=== PATIENT | female | born 1945 | race Caucasian/White ===

== ENCOUNTER 2022-09-08 23:12 | Emergency (ER) | payer MEDICARE, SELFPAY ==
--- NOTE | ~2022-09-08 | CT_ITS ---
EXAMINATION: CT brain wo con DATE: 09/08/2022 23:57 INDICATION: Neuro deficit. TRANSIENT ALTERATION OF AWARENESS. . TECHNIQUE: Computed tomography (CT) of the head was performed without intravenous contrast. The mA wa s adjusted according to patient size. Iterative reconstruction technique was employed. The dose-lengt h product was 605.33 mGy-cm. COMPARISON: None FINDINGS: No acute intracranial hemorrhage or extra-axial fluid collection. No hydrocephalus, mass, or herniation. No acute ischemic infarct. Unremarkable dural venous sinus attenuation. No acute osseous abnormality. Small bilateral mastoid effusions, in poorly pneumatized mastoid air cells. The remaining aerated spa pallavi are clear. Moderate atrophy and chronic white matter change. Atherosclerotic intracranial calcification. Bilater al lens replacements. IMPRESSION: No acute intracranial process. Reviewed, dictated and finalized at location K. POLISHER
--- NOTE | 2022-09-08 23:15 | ED.NEUROSD ---
HPI - Neuro Symptoms/Deficit General Stated Complaint: stoke signs Time Seen by Provider: 09/08/22 23:15 Source: patient, family and RN notes reviewed Discharge Plan Discharge Follow-up/Referrals: UNKNOWN,DOCTOR [Primary Care Provider] -
--- NOTE | 2022-09-08 23:16 | ECG_ITS ---
Measurements Intervals [place] Rate: 56 P: 37 MN: 168 QRS: 25 QRSD: 96 T: 48 QT: 458 QTc: 443 Interpretive Statements SINUS BRADYCARDIA WITH OCCASIONAL SUPRAVENTRICULAR PREMATURE COMPLEXES LONG QT INTERVAL ] NO PREVIOUS ECG AVAILABLE FOR COMPARISON Electronically Signed On 09-09-2022 6:28:29 CRM COORDINATOR by Huang Gramajo M.D.
[2022-09-08 23:18] LABS: Glucose Point of Care 48 mg/dl (65-105)
[2022-09-08 23:21] VITALS: BP 109/55; PULSE 56; TEMP 36.2; O2SAT 99
[2022-09-08 23:22] LABS: Glucose Point of Care 38 mg/dl (65-105)
[2022-09-08] MEDS: DEXTROSE 50% 25 GM/50 ML SYRINGE IV PUSH (23:23)
--- NOTE | 2022-09-08 23:31 | ED.AMS ---
HPI - Altered Mental Status General Chief Complaint: Altered Mental Status Stated Complaint: stoke signs Time Seen by Provider: 09/08/22 23:15 Source: patient, family ( grandson) and RN notes reviewed Mode of arrival: wheelchair Limitations: no limitations and clinical condition History of Present Illness HPI narrative: orlando states that his grandmother was put in bed at 7:00 p.m.. Because of her Alzheimer's and sometime she gets up out of bed on her own they have a motion sensitive camera in the room. They noted that she was sitting up on the edge of the bed not moving. They went down to see what was going on put her back in bed and she does not seem to be acting quite right. She does have a history of Alzheimer's dementia but she was not following commands as well as they thought. She was able to stand up seemed to have some difficulty with coordination. She is moving all extremities. Orlando had something on the floor and asked her to pick it up and she had difficulty bending over and picking it and never did pick it up. At that point they were concerned she might be having a stroke and they brought her here. complaint: altered mental status and weakness Onset (ago): hour(s) (4) Time: 19:00 Timing confirmed by: family member Severity: moderate Consistency of symptoms: constant Associated symptoms: weakness and difficulty walking ( coordination) Related Data Home Medications Medication Instructions Recorded Confirmed atorvastatin 10 mg tablet mg 09/08/22 losartan 25 mg tablet 25 mg PO 09/08/22 memantine ER 28 mg-donepezil 10 mg PO DAILY 09/08/22 capsule sprinkle,ext.release 24 hr (Namzaric) sertraline 50 mg tablet mg 09/08/22 Allergies Allergy/AdvReac Type Severity Reaction Status Date / Time No Known Allergies Allergy Verified 09/08/22 23:55 Review of Systems Review of Systems: All systems reviewed & are unremarkable except as noted in HPI and below ( Gathered from orlando) [facility] Past Medical History Medical History (Updated 09/09/22 @ 01:09 by Jay Loomis MD) Alzheimer's dementia Depression Hyperlipidemia Hypertension Surgical History Surgical History (Updated 09/09/22 @ 01:09 by Jay Loomis MD) Hx of inguinal hernia repair Social History Social History (Updated 09/09/22 @ 01:09 by Jay Loomis MD) Smoking status: Former smoker Exam Const: General: no acute distress, alert, confusion and ill appearing acutely Nutritional Appearance: well nourished and thin Limitations: altered mental status HENMT: Head: normal to inspection Ears: external ears normal Face/Nose/Sinus: Normal external nose present Face and sinus: normal facial exam Mouth: Yes moist mucous membranes Eyes: Conjunctivae: conjunctivae normal Pupils: Equal, round and reactive pupils present EOM: EOMs intact bilaterally Neck: Neck: normal visual inspection Resp: Effort & Inspection: normal respiratory effort Auscultation: clear to auscultation bilaterally Cardio: Rate: bradycardic Rhythm: regular rhythm GI: GI Palp: Yes Soft to palpation and No Tenderness to palpation present (GI) Auscultation: normal bowel sounds Back/Spine/Pelvis: Cervical Spine: cervical ROM normal Thoracic/Lumbar Spine: thoraco-lumbar ROM normal Skin: General skin exam: pallor Rashes: no rashes Neuro: General: moves all extremities, no focal motor deficits and CN's II-XI intact bilaterally Speech: normal speech Extrem: General: normal to inspection and no clubbing, cyanosis or edema Psych: Appearance: well kempt and other ( confused) Speech and movement: Slowed speech present (Psych) Attitude: cooperative Course Course Emergency Course: Patient significantly improved following amp of D50. Orlando says that she is closer to her baseline. She is following commands. Looking for other sources of possible etiologies labs show only mild hypokalemia. CT scan showed no abnormalities. EKG is reviewed
[2022-09-08 23:32] VITALS: BP 93/40; PULSE 57; RESP 20; TEMP 36.6; O2SAT 100
[2022-09-08 23:42] LABS: Glucose Point of Care 183 mg/dl (65-105)
[2022-09-08 23:47] LABS: Basophils Absolute Auto 0.05 K/mm3 (0.00-0.10); Basophils Percent Auto 0.7 % (0.0-1.0); Eosinophils Absolute Auto 0.06 K/mm3 (0.02-0.50); Eosinophils Percent Auto 0.9 % (1.0-6.0); Hematocrit 42.8 % (35.0-42.0); Hemoglobin 13.7 g/dL (11.7-13.8); Immature Granulocyte Absolute 0.02 K/mm3 (0.00-0.00); Immature Granulocyte Percent A 0.3 % (0.0-0.0); Lymphocytes Absolute Auto 1.54 K/mm3 (1.10-4.50); Lymphocytes Percent Auto 22.4 % (18.0-42.0); Mean Corpuscular Hemoglobin 30.8 pg (27.0-31.0); Mean Corpuscular Volume 96.2 fL (78.0-102.0); Mean Platelet Volume 9.7 fl (9.2-11.8); Monocytes Absolute Auto 0.45 K/mm3 (0.10-0.90); Monocytes Percent Auto 6.6 % (2.0-11.0); Neutrophils Absolute Auto 4.7 K/mm3 (1.7-7.2); Neutrophils Percent Auto 69.1 % (50.0-70.0); Platelet Count Result 256 K/mm3 (150-420); Red Blood Count 4.45 M/mm3 (4.20-5.40); Red Cell Distribution Width 13.4 % (11.6-14.4); White Blood Count 6.9 K/mm3 (4.8-10.8)
[2022-09-08 23:48] VITALS: PULSE 57
[2022-09-08 23:58] LABS: Partial Thromboplastin Time 25.7 SEC (23.90-30.70); Prothrombin Time 11.1 Seconds (9.50-12.10)
[2022-09-09] MEDS: DEXTROSE 5%/0.9% SOD CHL 1,000 ML 150 ML IV CONT (00:02)
[2022-09-09 00:03] LABS: Alanine Aminotransferase 13 U/L (14-59); Albumin Level 2.8 g/dL (3.4-5.0); Alkaline Phosphatase 51 U/L (46-116); Anion Gap 5 mmol/L (8-16); Aspartate Amino Transferase 11 U/L (15-37); Bilirubin,Total 0.3 mg/dL (0.00-1.00); Blood Urea Nitrogen 24 mg/dL (7-18); Carbon Dioxide 31 mmol/L (21-32); Chloride 107 mmol/L (98-108); Estimated CRCL calculation 32 ml/min; Estimated Glomerular Filt Rate 42; Glucose 254 mg/dL (70-99); Osmolality Calculated 309 mOsm/kg (285-295); Potassium 3.2 mmol/L (3.5-5.1); Sodium 143 mmol/L (136-145); Total Protein 5.6 g/dL (6.4-8.2); Troponin I 6.4 ng/L (0.00-60.4)
[2022-09-09 00:21] LABS: Add Urine Microscopic? YES; Appearance Urine Clear (Clear); Bilirubin Urine 1+ (Negative); Blood Urine Negative (Negative); Color Urine Yellow (Yellow); Glucose Urine UA Negative (Negative); Ketones Urine Trace (Negative); Leukocyte Esterase Ur Trace LEU/UL (Negative); Nitrate Urine Negative (Negative); Protein Urine Negative (Negative); Specific Grav Ur >= 1.030 (1.010-1.020); Urobilinogen Urine 0.2 mg/dL (0.2-1.0)
[2022-09-09 00:30] LABS: Amorphous Sediment Urine Heavy; Bacteria Urine 3+ /hpf; WBC Urine 0-3 /hpf (0-3)
[2022-09-09 00:31] LABS: Hyaline Casts Urine 50+ /lpf; Mucus Urine Heavy /lpf
[2022-09-09 00:57] LABS: Glucose Point of Care 113 mg/dl (65-105)
[2022-09-09 01:47] VITALS: BP 112/88; PULSE 80; RESP 20; TEMP 36.8; O2SAT 99
--- NOTE | 2022-09-16 23:31 | PC.NURSE ---
D5 solution stopped 09/09/22 0151
== END 2022-09-09 01:51 | disposition home or self-care (01) ==
PROVIDERS: Emergency Provider Emergency Medicine; PCP Physician Assistant
DX: E16.2 Hypoglycemia, unspecified (principal); E87.6 Hypokalemia; R53.1 Weakness; G30.9 Alzheimer's disease, unspecified; F02.80 Dementia in other diseases classified elsewhere, unspecified severity, without behavioral disturbance, psychotic disturbance, mood disturbance, and anxiety; E78.5 Hyperlipidemia, unspecified; I10 Essential (primary) hypertension; Z87.891 Personal history of nicotine dependence; Z79.899 Other long term (current) drug therapy; R00.1 Bradycardia, unspecified
CPT/HCPCS: 36415; 51701; 70450; 80053; 81001; 82948; 84484; 85025; 85610; 85730; 93005; 96361; 96374; 99284; J7042

== ENCOUNTER 2023-04-30 20:53 | Emergency (ER) | payer MEDICARE, SELFPAY ==
--- NOTE | ~2023-04-30 | CT_ITS ---
EXAMINATION: CT brain wo con DATE: 04/30/2023 21:32 INDICATION: CONFUSION/HX OF ALZHEIMERS . TECHNIQUE: Computed tomography (CT) of the head was performed without intravenous contrast. The mA wa s adjusted according to patient size. Iterative reconstruction technique was employed. The dose-lengt h product was 681.00 mGy-cm. COMPARISON: None. FINDINGS: No acute intracranial hemorrhage or extra-axial fluid collection. No hydrocephalus, mass, or herniation. No acute ischemic infarct. Unremarkable dural venous sinus attenuation. No acute osseous abnormality. Small right and trace left mastoid effusions. The remaining aerated spaces are clear. Moderate atrophy and chronic white matter change. Atherosclerotic intracranial calcification. Bilater al lens replacements. IMPRESSION: No acute intracranial process. Reviewed, dictated and finalized at location K.
--- NOTE | ~2023-04-30 | XR_ITS ---
EXAMINATION: XR chest 1V portable Exam Date/Time: 04/30/2023 21:14 CDT HISTORY: CONFUSION/HX OF ALZHEIMERS Comparison: None. RESULT: Lines, tubes, and devices: None. Lungs and pleura: Senescent change. Calcified right lower lung granuloma. Cardiomediastinal silhouette: Atherosclerotic arch calcifications. Calcified lymph nodes. Other: No acute osseous or upper abdominal finding. IMPRESSION: No acute cardiopulmonary process. Reviewed, dictated and finalized at location K.
[2023-04-30 20:55] VITALS: BP 124/72; PULSE 74; RESP 20; TEMP 37; O2SAT 96
--- NOTE | 2023-04-30 20:57 | ED.AMS ---
HPI - Altered Mental Status General Chief Complaint: Unspecified Stated Complaint: Pain Source: family Mode of arrival: ambulatory History of Present Illness HPI narrative: 77-year-old female with a history of ex smoking, Alzheimer's dementia, depression, dyslipidemia, hypertension, renal insufficiency,status post inguinal hernia repair was brought in by her neighbor for -- altered mental status. Unsure when her symptoms started. Last known well was yesterday. -- Her neighbor states that the patient is not ambulating as she normally does. -- The patient is nonverbal at baseline. The patient was last seen yesterday by her grandson and by her neighbor. They feel there is a dramatic change the patient's mental status. The patient is hemodynamically stable and afebrile. MD complaint: altered mental status Consistency of symptoms: unknown Related Data Home Medications Medication Instructions Recorded Confirmed atorvastatin 10 mg tablet 10 mg PO DAILY 09/08/22 04/30/23 losartan 25 mg tablet 25 mg PO DAILY 09/08/22 04/30/23 memantine ER 28 mg-donepezil 10 mg 1 cap PO DAILY 09/08/22 04/30/23 capsule sprinkle,ext.release 24 hr (Namzaric) sertraline 50 mg tablet 50 mg PO HS 09/08/22 04/30/23 sertraline 100 mg tablet 100 mg PO HS 04/30/23 04/30/23 Allergies Allergy/AdvReac Type Severity Reaction Status Date / Time No Known Allergies Allergy Verified 09/08/22 23:55 Review of Systems Review of Systems: The patient is nonverbal and is unable to provide any history. ROS unobtainable: Yes unobtainable due to mental status PMFSH Past Medical History Medical History Alzheimer's dementia Depression Hyperlipidemia Hypertension Surgical History Surgical History Hx of inguinal hernia repair Social History Social History Smoking status: Former smoker Exam Const: General: no acute distress Limitations: altered mental status HENMT: Head: normal to inspection Ears: external ears normal Face/Nose/Sinus: Normal external nose present Face and sinus: normal facial exam Eyes: Conjunctivae: conjunctivae normal Pupils: Equal, round and reactive pupils present EOM: EOMs intact bilaterally Direct Ophthalmoscopy: no photophobia Neck: Neck: normal visual inspection, no lymphadenopathy and no meningeal signs Chest: Chest palpation & inspection: normal inspection of the chest Resp: Effort & Inspection: normal respiratory effort Auscultation: clear to auscultation bilaterally Cardio: Rate: regular rate Rhythm: regular rhythm GI: GI Palp: Yes Soft to palpation Auscultation: normal bowel sounds : General: Yes bladder normal to palpation and Yes no CVA tenderness Skin: General skin exam: normal color Rashes: no rashes Wounds: no wounds Neuro: General: moves all extremities, no meningeal signs and CN's II-XI intact bilaterally Other: The patient was able to stand up on now own arriving to the ER. The patient is able to move her extremities without any focal deficits. Psych: Other: Patient is nonverbal Course Course Emergency Course: altered mental status Alzheimer's dementia dehydration renal insufficiency Vital Signs Vital signs: Vital Signs Temperature 37.0 C 04/30/23 20:55 Pulse Rate 74 04/30/23 20:55 Respiratory Rate 20 04/30/23 20:55 Blood Pressure 124/72 04/30/23 20:55 Pulse Oximetry 96 04/30/23 20:55 Oxygen Delivery Room Air 04/30/23 20:55 Temperature 37.0 C 04/30/23 20:55 Pulse Rate 74 04/30/23 20:55 Respiratory Rate 20 04/30/23 20:55 Blood Pressure 124/72 04/30/23 20:55 Pulse Oximetry 96 04/30/23 20:55 Oxygen Delivery Room Air 04/30/23 20:55 MDM - Altered Mental Status MDM Narrative Medical decision making narrative: altered menta
--- NOTE | 2023-04-30 21:04 | ECG_ITS ---
Measurements Intervals [place] Rate: 62 P: 62 ND: 155 QRS: 56 QRSD: 80 T: 67 QT: 391 QTc: 399 Interpretive Statements SINUS RHYTHM COMPARED TO ECG 09/08/2022 23:28:01 THE RATE IS FASTER Electronically Signed On 05-01-2023 10:20:20 CDT by Cata Sanchez M.D.
[2023-04-30 21:27] LABS: Glucose Point of Care 93 mg/dl (65-105)
[2023-04-30] MEDS: LACTATED RINGERS 500 ML 999 ML IV CONT (21:30)
[2023-04-30 21:59] LABS: Basophils Absolute Auto 0.04 K/mm3 (0.00-0.10); Basophils Percent Auto 0.5 % (0.0-1.0); Eosinophils Absolute Auto 0.03 K/mm3 (0.02-0.50); Eosinophils Percent Auto 0.4 % (1.0-6.0); Hematocrit 48.3 % (35.0-42.0); Hemoglobin 15.2 g/dL (11.7-13.8); Immature Granulocyte Absolute 0.03 K/mm3 (0.00-0.00); Immature Granulocyte Percent A 0.4 % (0.0-0.0); Lymphocytes Absolute Auto 1.04 K/mm3 (1.10-4.50); Lymphocytes Percent Auto 12.3 % (18.0-42.0); Mean Corpuscular HGB Conc 31.5 g/dL (32.0-36.0); Mean Corpuscular Hemoglobin 30.2 pg (27.0-31.0); Mean Corpuscular Volume 95.8 fL (78.0-102.0); Mean Platelet Volume 9.9 fl (9.2-11.8); Monocytes Percent Auto 9.4 % (2.0-11.0); Neutrophils Absolute Auto 6.5 K/mm3 (1.7-7.2); Platelet Count Result 301 K/mm3 (150-420); Red Blood Count 5.04 M/mm3 (4.20-5.40); White Blood Count 8.5 K/mm3 (4.8-10.8)
[2023-04-30 22:06] LABS: Bilirubin Urine 1+ (Negative); Blood Urine 1+ (Negative); Color Urine Yellow (Yellow); Glucose Urine UA Negative (Negative); Ketones Urine Trace (Negative); Leukocyte Esterase Ur Trace LEU/UL (Negative); Nitrate Urine Negative (Negative); Protein Urine Negative (Negative); Specific Grav Ur >= 1.030 (1.010-1.020); Urobilinogen Urine 0.2 mg/dL (0.2-1.0); pH Urine 5.5 (5.0-8.0)
[2023-04-30 22:10] LABS: Prothrombin Time 10.6 Seconds (9.50-12.10)
[2023-04-30 22:21] LABS: Add Urine Microscopic? YES; Amorphous Sediment Urine Heavy; Appearance Urine Slightly Cloudy (Clear); Bacteria Urine 1+ /hpf; Cellular Casts Urine Present /lpf; Lactic Acid Reflex 0.7 mmol/L (0.4-2.0); Squamous Epithelial Cell Urine Occasional /hpf (Few); WBC Clumps Urine Present /hpf; WBC Urine 0-3 /hpf (0-3)
[2023-04-30 22:22] LABS: Alanine Aminotransferase 15 U/L (14-59); Albumin Level 3.2 g/dL (3.4-5.0); Alkaline Phosphatase 64 U/L (46-116); Anion Gap 6 mmol/L (8-16); Aspartate Amino Transferase 11 U/L (15-37); Bilirubin,Total 0.4 mg/dL (0.00-1.00); Blood Urea Nitrogen 25 mg/dL (7-18); Calcium 10.2 mg/dL (8.5-10.1); Carbon Dioxide 33 mmol/L (21-32); Chloride 105 mmol/L (98-108); Estimated CRCL calculation 35 ml/min; Estimated Glomerular Filt Rate 46; Glucose 99 mg/dL (70-99); Lipase 31 U/L (16-77); Mucus Urine Heavy /lpf; NT Pro B Type Natriuretic Pept 186 pg/mL (0-450); Osmolality Calculated 302 mOsm/kg (285-295); Potassium 4.2 mmol/L (3.5-5.1); Sodium 144 mmol/L (136-145); Total Protein 6.7 g/dL (6.4-8.2); Troponin I 4.5 ng/L (0.00-60.4)
[2023-04-30 22:52] VITALS: BP 130/72; PULSE 72; RESP 20; TEMP 36.6; O2SAT 96
== END 2023-04-30 23:04 | disposition home or self-care (01) ==
PROVIDERS: Emergency Provider Internal Medicine Critical Care Medicine; PCP Physician Assistant
DX: E86.0 Dehydration (principal); R40.4 Transient alteration of awareness; G30.9 Alzheimer's disease, unspecified; F02.80 Dementia in other diseases classified elsewhere, unspecified severity, without behavioral disturbance, psychotic disturbance, mood disturbance, and anxiety; F32.A Depression, unspecified; E78.5 Hyperlipidemia, unspecified; I10 Essential (primary) hypertension; Z87.891 Personal history of nicotine dependence; Z79.899 Other long term (current) drug therapy
CPT/HCPCS: 36415; 70450; 71045; 80053; 81001; 82948; 83605; 83690; 83880; 84443; 84484; 85025; 85610; 93005; 96360; 99284; J7120

== ENCOUNTER 2024-01-17 15:58 | Observation (INO) | payer MEDICARE, SELFPAY ==
[2024-01-17] VITALS (25 sets, daily range): BP systolic 91–118; BP diastolic 55–79; PULSE 75–88; RESP 14–22; TEMP 36.6–36.7; O2SAT 90–99; BMI 18.6
--- NOTE | ~2024-01-17 | CT_ITS ---
EXAMINATION: CT chest abdomen pelvis wo con DATE: 01/17/2024 17:01 INDICATION: constipation/syncope . TECHNIQUE: Computed tomography (CT) of the chest, abdomen, and pelvis was performed without intraveno us contrast. Automated exposure control and iterative reconstruction technique were employed. The dos e-length product was 300.12 mGy-cm. COMPARISON: None FINDINGS: CHEST: Thoracic aorta: Moderate arch calcification. 1.5 cm shallow saccular outpouching of the anterior arch . Lung parenchyma and airways: Senescent changes. Scattered peripheral areas of subsegmental consolidat ion in the right upper and middle lobe with surrounding groundglass opacities. Patent airways. Thoracic inlet, axillae and chest wall: No thyroid or soft tissue mass. No axillary lymphadenopathy. Mediastinum: Dilated central pulmonary arteries as can be seen with pulmonary arterial hypertension. Calcified nodes. Heart and pericardium: Aortic valve calcification. Coronary artery calcifications: Moderate. Pleura: No effusion or mass. Thoracic bones: No acute osseous finding in the chest. ABDOMEN/PELVIS: Liver: Normal. Biliary/Gallbladder: Gallbladder is contracted. No bile duct dilation. Pancreas: No mass or duct dilation. Spleen: Normal. Adrenals:No mass. Kidneys: No suspicious mass, obstructing stone, or hydronephrosis. Simple left lower pole cyst. GI tract: Moderate hiatal hernia. Uncomplicated duodenal diverticulum. No small or large bowel dilati on. Normal appendix. Diverticulosis without diverticulitis. Moderate volume of colonic fecal material . Mesentery/Peritoneum: No ascites, mass, or free air. Retroperitoneum: No mass. Heavy aortic atherosclerotic calcification. Mild fusiform dilation of the u pper abdominal aorta. Small saccular outpouching measuring approximately 1 cm to the right and slight ly distal of the celiac takeoff. Pelvis: Urinary bladder is decompressed by a Rocha catheter. A loop of distal catheter tubing coils w ithin the urinary bladder. Soft Tissues: Soft tissues and body wall unremarkable. Abdominopelvic bones: No acute osseous finding in the abdomen/pelvis. IMPRESSION: Peripheral consolidations with surrounding groundglass opacity in the right upper and right middle lo bes as can occur with infection (including fungal, such as angioinvasive aspergillosis, septic emboli , and other atypical agents), primary or secondary hemorrhagic neoplastic disease, and pulmonary infa rction. Rocha catheter tubing coils in the urinary bladder, consider retraction. Reviewed, dictated and finalized at location K. IMPRESSION: Peripheral consolidations with surrounding groundglass opacity in the right upp er and right middle lobes as can occur with infection (including fungal, such a s angioinvasive aspergillosis, septic emboli, and other atypical agents), prima ry or secondary hemorrhagic neoplastic disease, and pulmonary infarction. Rocha catheter tubing coils in the urinary bladder, consider retraction.
[2024-01-17] MEDS: SODIUM CHLORIDE 0.9% IV 1,000 ML 150 ML IV CONT (16:30)
--- NOTE | 2024-01-17 16:33 | ED.GENADULT ---
HPI - General Adult General Chief complaint: Syncope Stated complaint: unresponsive Time Seen by Provider: 01/17/24 16:33 Source: family and EMS Mode of arrival: EMS Limitations: no limitations History of Present Illness HPI narrative: 78-year-old white female cared for by her grandson. grandson stated that she has been constipated and she had soiled herself that he got up to the shower to clean her often she had syncopal episode became unresponsive. Her baseline is minimally verbal. He called the ambulance after she collapsed. Blood pressure was 90/57 per EMS pulse 91 sinus respirations were 12 and clear she was placed on 4 L and put her at 93%. Patient is a full code she opens her eyes to speech response he started to respond more per EMS patient did not stop breathing. She woke up around 2:00 p.m. today according to grandson but has not eaten anything all day. Normally she eats pretty good. He had another caregiver with her yesterday and he said he got a good report from that caregiver. Grandson denies any cough shortness of breath. Says she has been eating great. Grandson says she does not talk but sometimes mumbles. Patient was seen in the ED on April of last year for altered mental status.? History of ex smoking Alzheimer's dementia depression dyslipidemia hypertension renal insufficiency.? At that time patient was and able ambulate she could move all extremities without any focal deficit.? Patient was thought to be dehydrated was discharged home. Related Data Home Medications Medication Instructions Recorded Confirmed atorvastatin 10 mg tablet 10 mg PO DAILY 09/08/22 01/17/24 losartan 25 mg tablet 25 mg PO DAILY 09/08/22 01/17/24 memantine ER 28 mg-donepezil 10 mg 1 cap PO DAILY 09/08/22 01/17/24 capsule sprinkle,ext.release 24 hr (Namzaric) sertraline 50 mg tablet 50 mg PO HS 09/08/22 01/17/24 sertraline 100 mg tablet 100 mg PO HS 04/30/23 01/17/24 Allergies Allergy/AdvReac Type Severity Reaction Status Date / Time No Known Allergies Allergy Verified 09/08/22 23:55 Review of Systems Review of Systems: All systems reviewed & are unremarkable except as noted in HPI and below PMFSH Past Medical History Medical History Alzheimer's dementia Depression Hyperlipidemia Hypertension Surgical History Surgical History Hx of inguinal hernia repair Social History Social History Smoking status: Former smoker Tobacco type: cigarettes Second hand tobacco smoke exposure: No Alcohol intake: never Substance use: never Spiritual care concerns: No Exam Narrative: Elderly White female patient with no apparent distress.? nonverbal. Head normocephalic, atraumatic.? Eyes conjunctiva pink sclera nonicteric.? Extraocular movements are intact.? Ears externally normal.? Oropharynx is clear with Dry mucous membranes without exudates.? Neck is supple nontender no lymphadenopathy.? Back is nontender.? Lungs are clear.? Heart is regular rate and rhythm without murmurs gallops or rubs.? Chest wall nontender.? Back is nontender. Abdomen is soft and nontender no hepatosplenomegaly or masses no CVA tenderness no abdominal bruits.? rectal exam normal tone no masses brown stool on the gloved finger. Extremities no cyanosis clubbing or edema.? Skin is warm and dry without rashes or lesions.? Neurological patient is alert, nonverbal ? Moves all extremities.? Course Vital Signs Vital signs: Vital Signs Pulse Rate 79 01/17/24 15:58 Respiratory Rate 20 01/17/24 15:58 Pulse Oximetry 95 01/17/24 15:58 Oxygen Delivery Room Air 01/17/24 15:58 Temperature 36.6 C 01/17/24 23:35 Pulse Rate 87 01/17/24 23:35 Respiratory Rate 18 01/17/24 23:35 Blood Pressure 104/78 01/17/24 23:35 Pulse Oximetry 95 01/17/24
--- NOTE | 2024-01-17 16:38 | ECG_ITS ---
SEE SCANNED COPY FOR CONFIRMED REPORT MTDD
--- NOTE | 2024-01-17 17:13 | PC.NURSE ---
family sitting at bedside with pt. call dyer in reach. no distress noted. multiple attempts for lab draw unsuccessful. iv fluids stopped to draw from left arm in 10 minutes.
--- NOTE | 2024-01-17 18:07 | PC.NURSE ---
multiple attempts for lab draw per lab staff. blood drawn from iv site per rn , 10ml wasted first
[2024-01-17 18:12] LABS: Hemoglobin 14.7 g/dL (11.7-13.8); Mean Corpuscular Hemoglobin 29.5 pg (27.0-31.0); Mean Corpuscular Volume 98.4 fL (78.0-102.0); Mean Platelet Volume 9.8 fl (9.2-11.8); Platelet Count Result 227 K/mm3 (150-420); Red Blood Count 4.98 M/mm3 (4.20-5.40); Red Cell Distribution Width 13.3 % (11.6-14.4); White Blood Count 11.6 K/mm3 (4.8-10.8)
[2024-01-17 18:17] LABS: Occult Blood Negative (Negative)
[2024-01-17 18:25] LABS: Partial Thromboplastin Time 25.7 Sec (23.9-30.70); Prothrombin Time 11.2 Seconds (9.50-12.1)
[2024-01-17 18:28] LABS: Lactic Acid Reflex 2.2 mmol/L (0.4-2.0)
[2024-01-17 18:35] LABS: Alanine Aminotransferase 36 U/L (14-59); Albumin Level 2.6 g/dL (3.4-5.0); Alkaline Phosphatase 117 U/L (46-116); Anion Gap 11 mmol/L (4-12); Aspartate Amino Transferase 55 U/L (15-37); Bilirubin,Total 0.7 mg/dL (0.00-1.00); Blood Urea Nitrogen 20 mg/dL (7-18); Calcium 8.3 mg/dL (8.5-10.1); Carbon Dioxide 26 mmol/L (21-32); Chloride 108 mmol/L (98-108); Estimated CRCL calculation 25 ml/min; Estimated Glomerular Filt Rate 44; Glucose 129 mg/dL (70-99); Magnesium 1.6 mg/dL (1.8-2.4); Osmolality Calculated 304 mOsm/kg (285-295); Potassium 4.3 mmol/L (3.5-5.1); Sodium 145 mmol/L (136-145)
[2024-01-17 18:52] LABS: Troponin I 452.5 ng/L (0.00-60.4)
[2024-01-17 18:59] LABS: Bilirubin Urine Negative (Negative); Blood Urine Negative (Negative); Color Urine Light Yellow (Yellow); Glucose Urine UA Negative (Negative); Ketones Urine Trace (Negative); Leukocyte Esterase Ur 1+ LEU/UL (Negative); Nitrate Urine Positive (Negative); Protein Urine 1+ (Negative); Urobilinogen Urine 0.2 mg/dL (0.2-1.0)
--- NOTE | 2024-01-17 19:05 | PC.NURSE ---
report to nik hardin. all questions answered.
[2024-01-17 19:17] LABS: Add Urine Microscopic? YES; Appearance Urine Cloudy (Clear); Bacteria Urine 4+ /hpf; WBC Clumps Urine Present /hpf; WBC Urine 21-30 /hpf (0-3)
[2024-01-17 19:18] LABS: White Blood Cell Casts Urine Present /lpf
--- NOTE | 2024-01-17 19:25 | PC.NURSE ---
Pt resting c family caregiver at bedside. Discussed c pts guardian/caregiver about her code status. Galina, guardian would like to discuss c other family members about POC for pt before decision made to transfer or receive more care.
--- NOTE | 2024-01-17 20:06 | PC.NURSE ---
Galina, pts guardian and HCPOA signed POLST to have pt made a DNR. ERP Dr Pandya in to speak c family. Pt resting, VSS, Monitor shows NSR at this time.
[2024-01-17 21:09] LABS: Reflex Lactic Acid Yes or No Add Lactic
[2024-01-17 21:12] LABS: Troponin I 796.2 ng/L (0.00-60.4)
--- NOTE | 2024-01-17 21:35 | PC.NURSE ---
Pt sitting upright in bed sipping on water given by pts guardian/POA. Pt is more alert and responding to family. VSS and monitor continues to show NSR.
[2024-01-17 21:45] LABS: Lactic Acid 1.3 mmol/L (0.4-2.0)
--- NOTE | 2024-01-17 22:48 | PC.NURSE ---
urinary saavedra cath removed per ERP order. Pt has depend in place. POC discussed again c family and pt will be admitted.
[2024-01-17] MEDS: DEXTROSE 5%/0.9% SOD CHL 1,000 ML 75 ML IV CONT (23:20)
--- NOTE | 2024-01-17 23:32 | PC.NURSE ---
This RN received report from Lennie Posada RN for pt. Pt is to arrive to room 226 shortly.
[2024-01-18] VITALS: BP 95/52; PULSE 90; RESP 16; TEMP 36.8; O2SAT 97
[2024-01-18] MEDS: DEXTROSE 5%/0.9% SOD CHL 1,000 ML 75 ML IV CONT (07:46)
[2024-01-18 08:00] VITALS: BP 110/73; PULSE 99; RESP 15; TEMP 36.6; O2SAT 97
--- NOTE | 2024-01-18 13:00 | PM.IMHP ---
H&P: HPI History of Present Illness Date/Time: 01/18/24 13:00 Chief Complaint: Altered mental status, syncope Narrative: This is a 78-year-old female with a significant past medical history Alzheimer's dementia, depression, hypertension, hyperlipidemia, renal insufficiency who presented to the hospital with altered mental status. Most of the history and presenting illness was obtained from the family at the bedside is the patient is normally just alert and oriented x1 at best as she is end-stage Alzheimer's dementia. Vinicio stated that he got her up to the shower to clean her off and patient became unresponsive and minimally verbal. He called the ambulance after she collapsed. The EMS found that her blood pressure was 90/57 and her pulse was 91. She was placed on 4 L nasal cannula and her oxygen saturation was 93%. She was brought here for further evaluation. Vinicio is the patient's current and primary caregiver. He states that she was able to still ambulate independently but has trouble recognizing even family. She still eats and drinks normally. Workup in the hospital include a CT of the chest abdomen and pelvis without contrast which shown peripheral consolidation with surrounding ground-glass opacity in the right upper and right middle lobes. Initial labs revealed a white blood cell count of 11.6, creatinine 1.19, EGFR 44, lactic acid 2.2 with a repeat down to 1.3, magnesium 1.6, AST 55, ALT 36, alk-phos 117, troponin was 452.5 with a repeat of 796.2, albumin 2.6. UA showed 1+ urine protein, trace ketone, positive nitrate, 1+ leukocyte, 21-30 urine wbc's, 4+ urine bacteria. Stool was occult blood negative. Urine and blood cultures were obtained and are pending. Patient was given Rocephin, started on normal saline at 1:50 a.m., and some Zofran while in the ED. I was called by the nurse who is at the bedside turning the patient when patient dropped her oxygen saturation down into the low 80s, blood pressure was reported 70 systolic, heart rate dropped down into 40s. Patient was started on a non-rebreather mask. Son was at the bedside when this all happened and decided to make her comfort measures only at this time and will discuss hospice in the morning. We went ahead and deescalated all active care and put in a comfort care order set including morphine, Ativan, atropine. Review of Systems Review of Systems: ROS unobtainable: Yes unobtainable due to mental status [facility] Past Medical History Medical History (Updated 01/18/24 @ 16:44 by Isela Rodas APRN) Alzheimer's dementia Depression Hyperlipidemia Hypertension Surgical History Surgical History Hx of inguinal hernia repair Social History Social History Smoking status: Former smoker Tobacco type: cigarettes Second hand tobacco smoke exposure: No Alcohol intake: never Substance use: never Spiritual care concerns: No Meds Home Medications and Allergies Home Medications Medication Instructions Recorded Confirmed Type atorvastatin 10 mg tablet 10 mg PO DAILY 09/08/22 01/17/24 History losartan 25 mg tablet 25 mg PO DAILY 09/08/22 01/17/24 History memantine ER 28 mg-donepezil 10 mg 1 cap PO DAILY 09/08/22 01/17/24 History capsule sprinkle,ext.release 24 hr (Namzaric) sertraline 50 mg tablet 50 mg PO HS 09/08/22 01/17/24 History potassium chloride 10 mEq 10 meq PO DAILY #10 tabs 09/09/22 01/17/24 Rx tablet,extended release (Klor-Con) sertraline 100 mg tablet 100 mg PO HS 04/30/23 01/17/24 History Allergies Allergy/AdvReac Type Severity Reaction Status Date / Time No Known Allergies Allergy Verified 09/08/22 23:55 Vital Signs Vital Signs - 24 hr 01/17/24 16:03 01/17/24 15:58 01/17/24 15:58 Temperature 98.1 F Pulse Rate 77 79 Respiratory Rate 16 20 Blood Pressure 91/55 L Pulse Oximetry 92 95 Oxygen Delive
--- NOTE | 2024-01-18 13:40 | PC.NURSE ---
Called to patient room by family stating she is having difficulty breathing. Upon entering room, pt was tachypneic and not responsive to pain. O2 saturation was not reading. Pt placed on NC at 6L which made O2 saturation 74%. Blood pressure 110/45 and HR 118. HR fluctuating between 40 and 150 on vital sign machine. PT placed on simple mask at 15L. O2 sat raised to 94%. Pt began to respond to painful stimuli, but not opening eyes. BP 78/54 with HR120. Grandson/poa requested several times to have pain medicine. Order was obtained from [employer], then POA requested that we wait for his sister to arrive.
[2024-01-18 14:00] VITALS: O2SAT 94
[2024-01-18] MEDS: MORPHINE SULFATE (*CRX) 2 MG/ML INJ IV PUSH ×5 (14:45→22:34)
[2024-01-18] MEDS: LORazepam INJ (*CRX) 2 MG/ML VIAL 1 MG IV PUSH ×3 (14:45→22:30)
[2024-01-18 16:00] VITALS: BP 128/63; PULSE 124; RESP 24
[2024-01-19] VITALS: BP 101/63; PULSE 134; RESP 17; TEMP 35.8; O2SAT 87
--- NOTE | 2024-01-19 02:03 | PC.NURSE ---
Pt's family member came to the nurses station and stated they believe the pt has . This RN along w/Jazlyn Rodriguez RN auscultated for heart sounds w/no success; pulseless on the pulse oximeter; and no pupillary reaction to a pen light. TOD 02:00 01/19/2024; pt's family at bedside. Galina (the pt's guardian) stated he will contact the rest of the family to relay the information about the pt's current status.
--- NOTE | 2024-01-19 02:16 | PC.NURSE ---
Pt washed w/soap and water after expiring by this RN w/assistance provided by Jazlyn Rodriguez RN.
--- NOTE | 2024-01-19 02:53 | PC.NURSE ---
[facility] notified to olive picker the body.
--- NOTE | 2024-01-19 03:24 | PC.NURSE ---
[facility] employee has arrived to facility to slat pickler the pt's body. Release of body form completed. Wero caicedo/[facility] is now collecting the corpse.
--- NOTE | 2024-01-19 15:27 | PM.DDS ---
Discharge Summary Date and Time Date of : 01/19/24 Time of : 02:00 Provider Pronounced By: Meek Carmichael RN and Amber Rodriguez RN Probable Cause of Probable Cause of : NSTEMI end-stage Alzheimer's dementia Summary Hospital Course: This is a 78-year-old female with a significant past medical history Alzheimer's dementia, depression, hypertension, hyperlipidemia, renal insufficiency who presented to the hospital with altered mental status.? Most of the history and presenting illness was obtained from the family at the bedside is the patient is normally just alert and oriented x1 at best as she is end-stage Alzheimer's dementia.? Grandson stated that he got her up to the shower to clean her off and patient became unresponsive and minimally verbal.? He called the ambulance after she collapsed. The EMS found that her blood pressure was 90/57 and her pulse was 91.? She was placed on 4 L nasal cannula and her oxygen saturation was 93%.? She was brought here for further evaluation.? Grandson is the patient's current and primary caregiver.? He states that she was able to still ambulate independently but has trouble recognizing even family.? She still eats and drinks normally.? Workup in the hospital include a CT of the chest abdomen and pelvis without contrast which shown peripheral consolidation with surrounding ground-glass opacity in the right upper and right middle lobes.? Initial labs revealed a white blood cell count of 11.6, creatinine 1.19, EGFR 44, lactic acid 2.2 with a repeat down to 1.3, magnesium 1.6, AST 55, ALT 36, alk-phos 117, troponin was 452.5 with a repeat of 796.2, albumin 2.6.? UA showed 1+ urine protein, trace ketone, positive nitrate, 1+ leukocyte, 21-30 urine wbc's, 4+ urine bacteria.? Stool was occult blood negative.? Urine and blood cultures were obtained and are pending.? Patient was given Rocephin, started on normal saline at 1:50 a.m., and some Zofran while in the ED. I was called by the nurse who is at the bedside turning the patient when patient dropped her oxygen saturation down into the low 80s, blood pressure was reported 70 systolic, heart rate dropped down into 40s.? Patient was started on a non-rebreather mask. Son was at the bedside when this all happened and decided to make her comfort measures only/hospice at this time and will discuss hospice in the morning.? We went ahead and deescalated all active care Per family request and put in a comfort care order set including morphine, Ativan, atropine. Was informed at 2:13 a.m. this morning that the patient had at 2:00 a.m.. Grandson and other family members were at the bedside at the time of expiration. Final diagnosis: NSTEMI, acute urinary tract infection, end-stage Alzheimer's dementia, hypomagnesemia Additional Data Confirmation of as documented by pronouncing clinician: Pupillary Reflex, Palpable Pulses, Response to Stimuli, Heart Tones and Breath Sounds Name of Provider Notified: Agustin Rodas NP Time Provider Notified: 02:13 Date [facility] Notified of : 01/19/24 Time [facility] Notified of : 02:17
== END 2024-01-19 03:45 | disposition expired ==
LOC: CHSED 22:47 → CHS2ND 23:32
PROVIDERS: Admitting Provider Internal Medicine; Emergency Provider Emergency Medicine; PCP Physician Assistant; Visit Provider Internal Medicine
DX: I21.4 Non-ST elevation (NSTEMI) myocardial infarction (principal); R55 Syncope and collapse; N39.0 Urinary tract infection, site not specified; G30.9 Alzheimer's disease, unspecified; F02.80 Dementia in other diseases classified elsewhere, unspecified severity, without behavioral disturbance, psychotic disturbance, mood disturbance, and anxiety; E83.42 Hypomagnesemia; E78.5 Hyperlipidemia, unspecified; I10 Essential (primary) hypertension; N28.9 Disorder of kidney and ureter, unspecified; K44.9 Diaphragmatic hernia without obstruction or gangrene; K57.90 Diverticulosis of intestine, part unspecified, without perforation or abscess without bleeding; Z87.891 Personal history of nicotine dependence; Z79.891 Long term (current) use of opiate analgesic
CPT/HCPCS: 36415; 71250; 74176; 80053; 81001; 82272; 83605; 83735; 84484; 85027; 85610; 85730; 87040; 87077; 87086; 87088; 87186; 93005; 96361; 96365; 96375; 96376; 99285; G0378; J0696; J2060; J2270; J7030; J7042